=== PATIENT | male | born 1995 | race Two or more races ===

== ENCOUNTER 2017-12-03 23:09 | Emergency (ER) | payer BC ==
[~2017-12-03] VITALS: Ht 170.2 cm; Wt 63.6 kg
[2017-12-04 01:28] LABS: CLARITY,URINE CLEAR (Clear); COLOR,URINE YELLOW (Yellow); GLUCOSE, URINE NEGATIVE (Neg); KETONES,URINE NEGATIVE (Neg); LEUKOCYTE ESTERASE ,URINE NEGATIVE (Neg); NITRITES, URINE NEGATIVE (Neg); OCCULT BLOOD,URINE TRACE-INTACT (Neg); PROTEIN,URINE NEGATIVE (Neg); UROBILINOGEN,URINE 0.2 E.U/dL (0.2-1.0)
[2017-12-04 01:33] LABS: UA COLLECTION TYPE FOLEY CATH
[2017-12-04 01:37] LABS: ALANINE AMINOTRANSFERASE 30 U/L (12-78); ALBUMIN 3.9 G/DL (3.4-5.0); ALBUMIN/GLOBULIN RATIO 1.1 (1.1-1.5); ALKALINE PHOSPHATASE 113 IU/L (46-116); ANION GAP 8 (8-16); ASPARTATE AMINO TRANSFERASE 39 U/L (10-37); BILIRUBIN,TOTAL 0.4 MG/DL (0.1-1.0); BLOOD UREA NITROGEN 11 MG/DL (7-18); BUN/CREATININE RATIO 15.9 (5.4-32.0); CALCIUM 9.1 MG/DL (8.5-10.1); CHLORIDE 103 MMOL/L (99-107); CREATININE 0.69 MG/DL (0.60-1.10); GLUCOSE 102 MG/DL (70-104); POTASSIUM 3.4 MMOL/L (3.5-5.1); SODIUM 139 MMOL/L (135-145); TOTAL CARBON DIOXIDE 28.4 MMOL/L (24-32); TOTAL PROTEIN 7.6 G/DL (6.4-8.2); eGFR > 90 ML/MIN
[2017-12-04 01:41] LABS: ACETAMINOPHEN < 2.0 UG/ML (10-30); ETHANOL < 0.010 GM/DL (0.0-0.010)
[2017-12-04 01:44] LABS: BACTERIA,URINE NONE SEEN /HPF (Neg); MUCUS STRANDS NONE SEEN /LPF (Neg); SQUAMOUS EPITHELIAL CELL,UR NONE SEEN /LPF (FEW); TRANSITIONAL EPI CELLS,URINE FEW /HPF; WBC,URINE 0-4 /HPF (0-4)
[2017-12-04 01:53] LABS: URINE AMPHETAMINE SCREEN POSITIVE (Neg); URINE BARBITUATE SCREEN NEGATIVE (Neg); URINE BENZODIAZEPINES SCREEN POSITIVE (Neg); URINE CANNABINOID SCREEN NEGATIVE (Neg); URINE COCAINE SCREEN NEGATIVE (Neg); URINE METHADONE SCREEN NEGATIVE (Neg); URINE OPIATE SCREEN POSITIVE (Neg); URINE PHENCYCLIDINE SCREEN NEGATIVE (Neg)
[2017-12-04 02:05] LABS: BASOPHILS % (AUTO) 0.3 % (0-1); EOSINOPHILS # (AUTO) 0.6 X10'3 (0-0.9); EOSINOPHILS % (AUTO) 7.2 % (0-6); HEMATOCRIT 41.5 % (42.0-52.0); HEMOGLOBIN 14.4 g/dl (14.0-17.9); LYMPHOCYTES # (AUTO) 1.8 X10'3 (1.1-4.8); LYMPHOCYTES % (AUTO) 21.4 % (21-51); MEAN CORPUSCULAR HEMOGLOBIN 29.5 PG (27.0-31.0); MEAN CORPUSCULAR HGB CONC 34.6 % (33.0-36.5); MEAN CORPUSCULAR VOLUME 85.1 FL (78-98); MEAN PLATELET VOLUME 7.6 FL (7.4-10.4); MONOCYTES # (AUTO) 0.7 X10'3 (0-0.9); MONOCYTES % (AUTO) 8.2 % (2-12); NEUTROPHILS # (AUTO) 5.3 X10'3 (1.8-7.7); NEUTROPHILS % (AUTO) 62.9 % (42-75); PLATELET COUNT 304 X10'3 (140-440); RED BLOOD COUNT 4.88 X10'6 (4.70-6.10); RED CELL DISTRIBUTION WIDTH 12.5 % (11.5-14.5); WHITE BLOOD COUNT 8.4 X10'3 (4.5-11.0)
[2017-12-04] MEDS: naloxone 0.4 mg/ml inj IV PRN ×2 (03:55→04:43)
[2017-12-04 09:18] VITALS: BP 109/86
== END 2017-12-04 09:31 | disposition home or self-care (01) ==
LOC: ER 23:10
DX: R09.2 Respiratory arrest (principal); T40.1X1A Poisoning by heroin, accidental (unintentional), initial encounter; Y92.89 Other specified places as the place of occurrence of the external cause
CPT/HCPCS: 36415; 80053; 80305; 80320; 80329; 81001; 85025; 96374; 96376; 99284; A4315; J2310; A4357

== ENCOUNTER 2021-10-20 14:55 | Emergency (ER) | payer BC, MEDICAID ==
[~2021-10-20] VITALS: Ht 167.6 cm; Wt 62.3 kg
[2021-10-20 14:57] VITALS: BP 119/70
--- NOTE | 2021-10-20 15:59 | NUR ---
SECOND CALL TO TREATMENT AREA, NOT IN LOBBY
== END 2021-10-20 16:30 | disposition left against medical advice (07) ==
LOC: ER 14:55
DX: S61.216A Laceration without foreign body of right little finger without damage to nail, initial encounter (principal); Z53.21 Procedure and treatment not carried out due to patient leaving prior to being seen by health care provider; X58.XXXA Exposure to other specified factors, initial encounter; Y93.9 Activity, unspecified; Y92.9 Unspecified place or not applicable; Y99.9 Unspecified external cause status

== ENCOUNTER 2022-01-29 08:30 | Inpatient (IN) | payer MEDICAID ==
[~2022-01-29] VITALS: Ht 167.6 cm; Wt 63.6 kg
[2022-01-29 10:14] LABS: BASOPHILS % (AUTO) 0.4 % (0-1); EOSINOPHILS # (AUTO) 0.1 X10'3 (0-0.9); EOSINOPHILS % (AUTO) 1.6 % (0-6); HEMATOCRIT 39.2 % (42.0-52.0); HEMOGLOBIN 13.2 g/dl (14.0-17.9); LYMPHOCYTES # (AUTO) 1.6 X10'3 (1.1-4.8); LYMPHOCYTES % (AUTO) 22.6 % (21-51); MEAN CORPUSCULAR HEMOGLOBIN 28.3 PG (27.0-31.0); MEAN CORPUSCULAR HGB CONC 33.7 g/dL (33.0-36.5); MEAN CORPUSCULAR VOLUME 83.8 FL (78-98); MONOCYTES # (AUTO) 0.3 X10'3 (0-0.9); MONOCYTES % (AUTO) 4.6 % (2-12); NEUTROPHILS # (AUTO) 5.1 X10'3 (1.8-7.7); NEUTROPHILS % (AUTO) 70.8 % (42-75); PLATELET COUNT 356 X10'3 (140-440); RED BLOOD COUNT 4.68 X10'6 (4.70-6.10); RED CELL DISTRIBUTION WIDTH 12.5 % (11.5-14.5); WHITE BLOOD COUNT 7.2 X10'3 (4.5-11.0)
[2022-01-29 10:28] LABS: APTT 29 SECONDS (22-32)
[2022-01-29 10:32] LABS: ALANINE AMINOTRANSFERASE 23 U/L (12-78); ALBUMIN 4.3 G/DL (3.4-5.0); ALBUMIN/GLOBULIN RATIO 1.2 (1.1-1.5); ALKALINE PHOSPHATASE 86 IU/L (46-116); ANION GAP 8 (8-16); ASPARTATE AMINO TRANSFERASE 43 U/L (10-37); BILIRUBIN,TOTAL 0.3 MG/DL (0.1-1.0); BLOOD UREA NITROGEN 12 MG/DL (7-18); BUN/CREATININE RATIO 17.4 (5.4-32.0); CALCIUM 9.1 MG/DL (8.5-10.1); CHLORIDE 103 MMOL/L (99-107); CREATININE 0.69 MG/DL (0.60-1.10); GLUCOSE 89 MG/DL (70-104); POTASSIUM 4.4 MMOL/L (3.5-5.1); SODIUM 139 MMOL/L (135-145); TOTAL CARBON DIOXIDE 27.9 MMOL/L (24-32); eGFR > 90 ML/MIN
[2022-01-29] MEDS ORDERED: morphine 4 MG/ML inj SYRINge IV ONE (13:00)
[2022-01-29] MEDS ORDERED: ondansetron 4mg rapidly disintigrating tab PO ONE (13:00)
[2022-01-29] MEDS ORDERED: magnesium 2GM in 50ml NS 50 ML IV PRN (14:00)
[2022-01-29] MEDS ORDERED: magnesium hydroxide 30ml (MOM) UD suspension PO PRN (14:00)
[2022-01-29] MEDS ORDERED: potassium CL 10mEq/100ml bag 100 ML IV PRN (14:00)
[2022-01-29] MEDS ORDERED: mag hydrox/Alum hydrox/simeth 30ml oral suspension PO PRN (14:00)
[2022-01-29] MEDS ORDERED: POTASSIUM BICARB 20meq eff tab 20 MEQ TABLET.EFF PO PRN ×2 (14:00)
[2022-01-29] MEDS ORDERED: magnesium 4gm in 100ml NS 100 ML IV PRN (14:00)
[2022-01-29] MEDS ORDERED: acetaminophen 325mg tablet PO PRN ×3 (14:00→16:35)
[2022-01-29] MEDS ORDERED: ondansetron/PF 4mg/2ml inj IV PRN (14:00)
[2022-01-29] MEDS ORDERED: magnesium Cl slow-release 64mg tablet PO PRN (14:00)
[2022-01-29 14:14] LABS: CLARITY,URINE CLEAR (Clear); COLOR,URINE YELLOW (Yellow); GLUCOSE, URINE NEGATIVE (Neg); KETONES,URINE NEGATIVE (Neg); LEUKOCYTE ESTERASE ,URINE NEGATIVE (Neg); NITRITES, URINE NEGATIVE (Neg); OCCULT BLOOD,URINE NEGATIVE (Neg); PROTEIN,URINE NEGATIVE (Neg); UROBILINOGEN,URINE 0.2 E.U/dL (0.2-1.0)
[2022-01-29 14:16] LABS: UA COLLECTION TYPE URINAL; URINE AMPHETAMINE SCREEN NEGATIVE (Neg); URINE BARBITUATE SCREEN NEGATIVE (Neg); URINE BENZODIAZEPINES SCREEN NEGATIVE (Neg); URINE CANNABINOID SCREEN NEGATIVE (Neg); URINE COCAINE SCREEN NEGATIVE (Neg); URINE METHADONE SCREEN NEGATIVE (Neg); URINE OPIATE SCREEN NEGATIVE (Neg); URINE PHENCYCLIDINE SCREEN NEGATIVE (Neg)
[2022-01-29 14:27] LABS: HEMOGLOBIN A1C 5.5 % (4.5-6.2)
[2022-01-29] MEDS ORDERED: BUPR1FIL3 PO (14:28)
[2022-01-29] MEDS: normal saline 1000ml 1,000 ML IV SCH (14:45)
[2022-01-29 16:02] VITALS: BP 102/59
[2022-01-29] MEDS ORDERED: HYDROcodone/acetaminophen 10/325mg tab PO PRN (16:35)
[2022-01-29] MEDS ORDERED: HYDROcodone/acetaminophen 5mg/325mg tablet PO PRN (16:35)
[2022-01-29] MEDS ORDERED: morphine 2 MG/ML inj. syringe IV PRN ×2 (16:35)
[2022-01-29] MEDS: heparin, porcine 5000 units/ml vial SQ SCH (16:43)
[2022-01-29 18:36] VITALS: BP 107/70
--- NOTE | 2022-01-29 18:51 | NUR ---
Problems reprioritized. Patient report given, questions answered & plan of care reviewed with ANDRE Mojica.
[2022-01-29] MEDS: docusate sod 100mg capsule PO SCH (19:16)
[2022-01-29] MEDS: K and/or MAG REPLACEMENT MC SCH (20:00)
[2022-01-29 20:51] VITALS: BP 107/70
[2022-01-29] MEDS ORDERED: temazepam 15mg capsule PO PRN (21:00)
[2022-01-29 22:10] VITALS: BP 98/59
[2022-01-30] MEDS: heparin, porcine 5000 units/ml vial SQ SCH ×2 (00:15→07:44)
[2022-01-30 02:15] VITALS: BP 102/56
[2022-01-30] MEDS: normal saline 1000ml 1,000 ML IV SCH (03:24)
--- NOTE | 2022-01-30 06:15 | NUR ---
Problems reprioritized. Patient report given, questions answered & plan of care reviewed with Sabrina POWELL.
[2022-01-30 06:21] VITALS: BP 108/53
--- NOTE | 2022-01-30 06:21 | NUR ---
Received report from ANDRE Mojica and RUPERTO Goodson
[2022-01-30 06:22] LABS: BASOPHILS % (AUTO) 0.2 % (0-1); EOSINOPHILS # (AUTO) 0.1 X10'3 (0-0.9); EOSINOPHILS % (AUTO) 2.1 % (0-6); HEMATOCRIT 36.6 % (42.0-52.0); HEMOGLOBIN 12.1 g/dl (14.0-17.9); LYMPHOCYTES # (AUTO) 1.7 X10'3 (1.1-4.8); LYMPHOCYTES % (AUTO) 25.6 % (21-51); MEAN CORPUSCULAR HEMOGLOBIN 27.3 PG (27.0-31.0); MEAN CORPUSCULAR VOLUME 82.7 FL (78-98); MEAN PLATELET VOLUME 7.5 FL (7.4-10.4); MONOCYTES # (AUTO) 0.4 X10'3 (0-0.9); MONOCYTES % (AUTO) 5.7 % (2-12); NEUTROPHILS # (AUTO) 4.4 X10'3 (1.8-7.7); NEUTROPHILS % (AUTO) 66.4 % (42-75); PLATELET COUNT 311 X10'3 (140-440); RED BLOOD COUNT 4.42 X10'6 (4.70-6.10); RED CELL DISTRIBUTION WIDTH 12.5 % (11.5-14.5); WHITE BLOOD COUNT 6.6 X10'3 (4.5-11.0)
[2022-01-30 06:48] LABS: ALANINE AMINOTRANSFERASE 20 U/L (12-78); ALBUMIN 3.4 G/DL (3.4-5.0); ALKALINE PHOSPHATASE 76 IU/L (46-116); ANION GAP 7 (8-16); ASPARTATE AMINO TRANSFERASE 31 U/L (10-37); BILIRUBIN,TOTAL 0.3 MG/DL (0.1-1.0); BLOOD UREA NITROGEN 9 MG/DL (7-18); BUN/CREATININE RATIO 12.3 (5.4-32.0); CALCIUM 8.2 MG/DL (8.5-10.1); CHLORIDE 108 MMOL/L (99-107); CHOL/HDL RATIO 2.8 (0.00-4.99); CHOLESTEROL 133 MG/DL (0-200); CREATININE 0.73 MG/DL (0.60-1.10); GLUCOSE 87 MG/DL (70-104); HDL CHOLESTEROL 48 MG/DL (35-60); LDL CHOLESTEROL 76 MG/DL (50-100); POTASSIUM 3.9 MMOL/L (3.5-5.1); SODIUM 141 MMOL/L (135-145); TOTAL CARBON DIOXIDE 26.2 MMOL/L (24-32); TOTAL PROTEIN 6.7 G/DL (6.4-8.2); TRIGLYCERIDES 40 MG/DL (20-135); eGFR > 90 ML/MIN
[2022-01-30] MEDS: docusate sod 100mg capsule PO SCH (07:45)
[2022-01-30] MEDS: K and/or MAG REPLACEMENT MC SCH (07:45)
[2022-01-30] MEDS ORDERED: clopidogrel 75mg tablet PO SCH (08:00)
[2022-01-30] MEDS ORDERED: atorvastatin 20mg tablet PO SCH (08:00)
[2022-01-30] MEDS ORDERED: aspirin 81mg, enteric-coated 1 TAB TABLET.DR PO SCH (08:00)
--- NOTE | 2022-01-30 09:42 | NUR ---
PAGER ID: [phone] MESSAGE: [phone], Sen neurologist consult recommended HIV screen, RPR, ALBERTO , ESR and hypercoagulable labs. Can we get these ordered please? sy Pyle Addendum: 01/30/22 at 1246 by Sabrina Melendez RN stated she would add labs however now says they can follow up outpatient in regards to labs that neurologist reccomended.
[2022-01-30 10:04] VITALS: BP 96/54
--- NOTE | 2022-01-30 11:00 | NUR ---
Copy of MRI report was given to mother per stroke RN request.
--- NOTE | 2022-01-30 14:22 | NUR ---
PAGER ID: [phone] MESSAGE: [phone], Sen can I get a discharge order? patient and mother are very anxious to leave.. thanks, gayla [phone]
[2022-01-30] MEDS ORDERED: ASPI-1071 PO (14:24)
[2022-01-30] MEDS ORDERED: CLOP75TA34 PO (14:24)
[2022-01-30] MEDS ORDERED: ATOR20TA66 PO (14:24)
--- NOTE | 2022-01-30 14:42 | NUR ---
Patient discharged to home in stable condition, left with mother to private vehicle and declined wheelchair transport. 20 gauge iv removed from left hand, cannula intact no complications. Patient and mother verbalized understanding of all instructions given to them. Medications were called in to [facility] on [address].
== END 2022-01-30 14:45 | disposition home or self-care (01) | DRG 45 ==
LOC: ER 08:31 → ED HOLD 14:01 → ORTHO 4S 15:50
PROVIDERS: ADMIT Internal Medicine; ATTEND Internal Medicine
DX: I63.511 Cerebral infarction due to unspecified occlusion or stenosis of right middle cerebral artery (principal); F17.200 Nicotine dependence, unspecified, uncomplicated; R74.01 Elevation of levels of liver transaminase levels
CPT/HCPCS: 36415; 70450; 70544; 70547; 70551; 71045; 80053; 80061; 80305; 81003; 83036; 85025; 85610; 85730; 87081; 92508; 92616; 93005; 93306; 96374; 97161; 97530; 99285; G0378; J1644; J2270; J7030